=== PATIENT | female | born 1945 | race Caucasian/White ===

== ENCOUNTER 2019-08-26 15:42 | Emergency (ER) | payer MEDICARE, OTHER ==
--- NOTE | 2019-08-26 16:39 | RAD ---
EXAM: CHEST ONE VIEW HISTORY: Small bowel obstruction. COMPARISON: None FINDINGS: There is suboptimal evaluation left lung base due to technique of the study. Lungs otherwise appear c lear. Cardiac silhouette and pulmonary vasculature are within normal limits. Vascular calcifications are seen in the thoracic aorta. Degenerative changes are present in the spine. IMPRESSION: Suboptimal evaluation left lung base. There is otherwise no acute cardiopulmonary process.
[2019-08-26] MEDS ORDERED: Cefepime 1 GM VIAL ONE (16:44)
[2019-08-26] MEDS ORDERED: Sodium Chloride 0.9% 1,000 ML ONE (16:44)
[2019-08-26] MEDS ORDERED: Sodium Chloride 0.9% 100 ML ONE (16:44)
[2019-08-26 17:02] LABS: Hemoglobin 14.1 g/dL (12.0-16.0); Mean Corpuscular HGB CONC 30.2 g/dL (32.0-36.0); Mean Corpuscular Hemoglobin 29.4 pg (27.0-31.0); Mean Corpuscular Volume 97.4 fL (78.0-98.0); Mean Platelet Volume 7.4 fL (7.4-10.4); Platelet Count 429 thou/uL (130-400); RBC Distribution Width 12.6 % (11.5-14.5); White Blood Cell (WBC) Count 22.3 thou/uL (4.8-10.8)
[2019-08-26 17:04] LABS: ALT (SGPT) 55 U/L (8-55); AST (SGOT) 56 U/L (5-34); Albumin 3.1 g/dL (3.4-4.8); Alkaline Phosphatase 71 U/L (40-110); Anion Gap 15 mmol/L (10-20); BUN (Urea Nitrogen) 36 mg/dL (9.8-20.1); Bilirubin, Total 0.7 mg/dL (0.2-1.2); Calc. Creatinine Clearance 0 mL/min (70-130); Calcium 10.4 mg/dL (7.8-10.44); Carbon Dioxide 30 mmol/L (23-31); Chloride 100 mmol/L (98-107); Estimated GFR-MDRD 41; Globulin 3.7 g/dL (2.4-3.5); Glucose 93 mg/dL (83-110); Potassium 4.2 mmol/L (3.5-5.1); Protein, Total 6.8 g/dL (6.0-8.3); Sodium 141 mmol/L (136-145)
[2019-08-26 18:10] LABS: Bilirubin Negative (Negative); Blood, Urine Trace (Negative); Clarity Clear (Clear); Glucose, Urine (Dipstick) Negative (Negative); Leukocyte Small (Negative); Nitrite Negative (Negative); Protein, Urine (Dipstick) Negative (Neg-Trace); Urobilinogen 0.2 mg/dL (Less than 2)
[2019-08-26 18:22] LABS: Bacteria/HPF 1+ HPF (None Seen); RBC/HPF 0-3 HPF (0-3); WBC/HPF 21-50 HPF (0-3)
[2019-08-26 18:23] LABS: Mucous/LPF Rare LPF (<2+)
[2019-08-26 19:02] LABS: Band 6 % (5-11); Eosinophils 1 % (0-10); Lymphocytes 5 % (21-51); MDiff Complete? YES; Metamyelocyte 2 % (0-0); Monocytes 10 % (0-10); Neutrophil 73 % (42-75); Platelet Morphology Comment Appears Adequate; RBC Morphology Normal; Reactive Lymphocytes 3 % (0-10)
== END 2019-08-26 21:53 | disposition short-term general hospital (02) ==
LOC: MADERS 15:42
DX: A41.9 Sepsis, unspecified organism (principal); N39.0 Urinary tract infection, site not specified; J06.9 Acute upper respiratory infection, unspecified; I10 Essential (primary) hypertension; E66.9 Obesity, unspecified; F32.9 Major depressive disorder, single episode, unspecified; Z79.899 Other long term (current) drug therapy
CPT/HCPCS: 71045; 80053; 81003; 81015; 83605; 83880; 84484; 85025; 87040; 87086; 87804; 93005; 96365; J0692; J3490; J7050